=== PATIENT | female | born 1990 | race Caucasian/White ===

== ENCOUNTER 2022-05-20 03:37 | Outpatient (CLI) | payer BC, SELFPAY ==
[2022-05-20 16:50] LABS: Anion Gap 10.1 mmol/L (3-11); BUN 8 mg/dL (7-18); CO2 23.9 mmol/L (21.0-32.0); CREATININE 0.7 mg/dL (0.55-1.02); Calcium 9.7 mg/dL (8.5-10.1); Chloride 106 mmol/L (98-107); Estimated GFR 117.77 (mL/min/1.73m2); Glucose 97 mg/dL (74-106); Potassium 3.9 mmol/L (3.5-5.1); Sodium 140 mmol/L (136-145)
== END 2022-05-20 03:38 | disposition home or self-care (01) ==
LOC: LBO 03:38
PROVIDERS: PCP Nurse Practitioner Adult Health; Visit Provider Nurse Practitioner Adult Health
DX: R73.03 Prediabetes (principal); E66.01 Morbid (severe) obesity due to excess calories; Z79.84 Long term (current) use of oral hypoglycemic drugs; F41.8 Other specified anxiety disorders
CPT/HCPCS: 36415; 80048

== ENCOUNTER 2024-07-05 17:13 | Outpatient (REF) | payer BC, SELFPAY ==
[2024-07-05 20:01] LABS: Hemoglobin A1C 5.1 % (<5.7)
[2024-07-05 20:23] LABS: ALT 18 U/L (14-59); AST 16 U/L (15-37); Albumin 4.1 g/dL (3.4-5.0); Alkaline Phosphatase 87 U/L (46-116); Anion Gap 10.1 mmol/L (3-11); BUN 10 mg/dL (7-18); Bilirubin, Total 0.3 mg/dL (0.2-1.0); CO2 24.9 mmol/L (21.0-32.0); CREATININE 0.7 mg/dL (0.55-1.02); Calcium 9.2 mg/dL (8.5-10.1); Calculated LDL 125 mg/dL (<100); Chloride 102 mmol/L (98-107); Cholesterol 199 mg/dL (<200); Estimated GFR 116.31 (mL/min/1.73m2); Glucose 93 mg/dL (74-106); HDL Cholesterol 52 mg/dL (>or=50); Sodium 137 mmol/L (136-145); TSH (W/Ref FT4) 0.75 uIU/mL (0.36-3.74); Total Protein 7.4 g/dL (6.4-8.2); Triglyceride 114 mg/dL (<150)
== END 2024-07-05 17:14 | disposition home or self-care (01) ==
LOC: NCHCN 17:13
PROVIDERS: Visit Provider Nurse Practitioner Family
DX: Z68.41 Body mass index [BMI] 40.0-44.9, adult (principal); R73.03 Prediabetes; E66.9 Obesity, unspecified
CPT/HCPCS: 80053; 80061; 83036; 84443

== ENCOUNTER 2024-08-07 18:19 | Outpatient (REF) | payer BC, SELFPAY ==
[2024-08-07 21:41] LABS: Abs Immature Grans 0.06 10^3/uL (0.0-0.06); Absolute Basophil Count 0.06 10^3/uL (0.0-0.2); Absolute Eosinophil Count 0.64 10^3/uL (0.0-0.7); Absolute Monocyte Count 0.76 10^3/uL (0.1-0.8); Absolute Neutrophil Count 8.01 10^3/uL (1.2-6.7); Basophils % 0.5 %; Eosinophils % 5.2 %; HCT 44.1 % (36.0-46.0); HGB 14.2 g/dL (11.2-15.7); Immature Grans % 0.5 %; Lymphocytes % 22.6 %; MCH 25.4 pg (27.0-33.0); MCHC 32.2 % (32.0-36.0); MCV 79 fL (80-95); Monocytes % 6.2 %; Platelet Count 387 10^3/uL (130-400); RBC 5.58 10^6/uL (3.93-5.22); RDW 13.4 % (11.7-14.6); WBC 12.32 10^3/uL (4.4-10.8)
[2024-08-07 21:44] LABS: Absolute Lymphocyte Count 2.78 10^3/uL (1.2-3.4)
[2024-08-07 22:07] LABS: ALT 65 U/L (14-59); AST 15 U/L (15-37); Alkaline Phosphatase 79 U/L (46-116); Anion Gap 12.6 mmol/L (3-11); BUN 14 mg/dL (7-18); Bilirubin, Total 0.4 mg/dL (0.2-1.0); CO2 22.4 mmol/L (21.0-32.0); CREATININE 0.6 mg/dL (0.55-1.02); Chloride 104 mmol/L (98-107); Estimated GFR 120.72 (mL/min/1.73m2); Glucose 88 mg/dL (74-106); Lipase 32 U/L (<78); Potassium 4.3 mmol/L (3.5-5.1); Sodium 139 mmol/L (136-145); Total Protein 7.3 g/dL (6.4-8.2)
== END 2024-08-07 18:20 | disposition home or self-care (01) ==
LOC: LBN 18:19
PROVIDERS: Visit Provider Nurse Practitioner Family
DX: R11.2 Nausea with vomiting, unspecified (principal); R19.7 Diarrhea, unspecified
CPT/HCPCS: 80053; 83690; 85025